=== PATIENT | male | born 2000 | race Hispanic/Latino ===

== ENCOUNTER 2020-04-27 05:28 | Emergency (ER) | payer SELFPAY ==
[~2020-04-27] VITALS: Ht 180.3 cm; Wt 52.2 kg
--- NOTE | 2020-04-27 05:37 | Emergency Department Note ---
History of Present Illnes History of Present Illness Chief Complaint: Genitourinary History of Present Illness This is a 19 year old male presents to the ED for asymptomatic hemat uria since this AM. Denies trauma or pain to the area. . Onset (how long ago): second(s) Radiation: Reports non-radiation Severity: mild Onset quality: sudden Timing of current episode: constant Progression: unchanged Chronicity: new Relieving factors: none Exacerbating factors: none Associated symptoms: Denies denies other symptoms, Denies confusion, Denies chest pain, Denies cough, Denies diaphoresis, Denies fever/chills, Denies headaches, Denies loss of appetite, Denies malaise, Denies nausea/vomiting, Denies rash, Denies seizure, Denies shortness of breath, Denies syncope, Denies weakness, Denies other (RODNEY STEPHENS DO) Past Medical/Family History Physician Review I have reviewed the patient's past medical and family history. Any updates have been documented here. (RODNEY STEPHENS DO) Past Medical History Recent Fever: No Clinical Suspicion of Infectio: No New/Unexplained Change in Ment: No Past Medical History: None Past Surgical History: None (RODNEY STEPHENS DO) Social History Smoking Cessation: Current some day smoker Alcohol Use: None Any Illegal Drug Use: No (RODNEY STEPHENS DO) Review of Systems Review of Systems Constitutional: Reports no symptoms EENTM: Reports no symptoms Cardiovascular: Reports no symptoms Respiratory: Reports no symptoms Gastrointestinal: Reports no symptoms Genitourinary: Reports hematuria Musculoskeletal: Reports no symptoms Integumentary: Reports no symptoms Neurological: Reports no symptoms Psychological: Reports no symptoms Endocrine: Reports no symptoms Hematological/Lymphatic: Reports no symptoms (RODNEY STEPHENS DO) Physical Exam Related Data Allergies: Coded Allergies: No Known Allergies (Unverified , 01/10/17) Physical Exam CONSTITUTIONAL Constitutional: Present well-developed, Present well-nourished HENT HENT: Present normocephalic, Present atraumatic, Present oropharynx clear/moist, Present nose normal HENT L/R: Present left ext ear normal, Present right ext ear normal EYES Eyes: Reports PERRL, Reports conjunctivae normal NECK Neck: Present ROM normal PULMONARY Pulmonary: Present effort normal, Present breath sounds normal CARDIOVASCULAR Cardiovascular: Present regular rhythm, Present heart sounds normal, Present capillary refill normal, Present normal rate GASTROINTESTINAL Abdominal: Present soft, Present nontender, Present bowel sounds normal GENITOURINARY Genitourinary: Present exam deferred SKIN Skin: Present warm, Present dry MUSCULOSKELETAL Musculoskeletal: Present ROM normal NEUROLOGICAL Neurological: Present alert, Present oriented x 3, Present no gross motor or sensory deficits PSYCHOLOGICAL Psychological: Present mood/affect normal, Present judgement normal (RODNEY STEPHENS DO) Results Laboratory Laboratory Laboratory Tests Test 04/27/20 05:32 Urine Color Yellow (YELLOW) Urine Clarity Sl cloudy (CLEAR) Urine pH 5.5 (5 - 7) Urine Specific [place] >=1.030 (1.010-1.025) Urine Protein Trace (NEGATIVE) Urine Glucose (UA) Negative (NEGATIVE) Urine Ketones Negative (NEGATIVE) Urine Blood Large (NEGATIVE) Urine Nitrite Negative (NEGATIVE) Urine Bilirubin Negative (NEGATIVE) Urine Urobilinogen 0.2 mg/dL (0.2 - 1) Urine Leukocyte Esterase Trace (NEGATIVE) Urine RBC 11-20 /HPF (0-5) Urine WBC >50 /HPF (0-5) Urine Epithelial Cells Few /LPF (NONE) Urine Bacteria Rare /HPF (NONE) Lab results reviewed: Yes (DINO ECHEVERRIA MD) Imaging Imaging results reviewed: Yes (DINO ECHEVERRIA MD) Assessment & Plan Medical Decision Making MDM Diff Dx : cystitis, hematuria, UTI, bladder malignancy, kidney stone (RODNEY STEPHENS DO) Reassessment Reassessment treat with IM Rocephin, po Azithro here, DC home with Cipro 500 bid x 10 days, F/U Urology within 1 week (DINO ECHEVERRIA MD) Assessment & Plan Final Impression: (1) Hematuria (RODNEY STEPHENS DO) Final Impression: (1) Hematuria (2) UTI (urinary tract infection) (DINO ECHEVERRIA MD) Depart Disposition: HOME, SELF-CARE RODNEY STEPHENS DO Apr 27, 2020 05:37 DINO ECHEVERRIA MD Apr 27, 2020 06:52
[2020-04-27 05:57] LABS: CLARITY,URINE SL CLOUDY (CLEAR); COLOR,URINE YELLOW (YELLOW); LEUKOCYTE ESTERASE ,URINE TRACE (NEGATIVE)
[2020-04-27 05:58] LABS: BILIRUBIN,URINE NEGATIVE (NEGATIVE); KETONES,URINE NEGATIVE (NEGATIVE); NITRITE,URINE NEGATIVE (NEGATIVE); PROTEIN,URINE DIPSTICK TRACE (NEGATIVE); URINE UROBILINOGEN 0.2 mg/dL (0.2 - 1)
--- NOTE | 2020-04-27 06:19 | Diagnostic Imaging Report ---
EXAM: CT Abdomen and Pelvis WITHOUT contrast INDICATION: ^hematuria COMPARISON: None. TECHNIQUE: Abdomen and pelvis were scanned utilizing a multidetector helical scanner from the lung base to the pubic symphysis without administration of IV contrast. Absence of intravenous contrast decreases sensitivity for detection of focal lesions and vascular pathology. Coronal and sagittal reformations were obtained. Routine protocol was performed. IV CONTRAST: None ORAL CONTRAST: Water COMPLICATIONS: None RADIATION DOSE: Total DLP: 165.55 mGy*cm Estimated effective dose: (DLP x 0.015 x size factor) mSv CTDIvol has been reviewed. It is below the limits set by the Radiation Protocol Committee (RPC). FINDINGS: LINES and TUBES: None. LOWER THORAX: Unremarkable HEPATOBILIARY: Unenhanced liver is unremarkable. No biliary ductal dilation. GALLBLADDER: No radio-opaque stones or sludge. No wall thickening. SPLEEN: No splenomegaly. PANCREAS: No focal masses or ductal dilatation. ADRENALS: No adrenal nodules KIDNEYS/URETERS: No hydronephrosis. Limited for evaluation of renal parenchyma without intravenous contrast. 2 cm left renal superior pole hypodensity, likely a cyst. No stones. GI TRACT: No abnormal distention, wall thickening, or evidence of bowel obstruction. Appendix is not clearly visualized. PELVIC ORGANS/BLADDER: Unremarkable. LYMPH NODES: No lymphadenopathy. VESSELS: Unremarkable. PERITONEUM / RETROPERITONEUM: No free air or fluid. BONES: Unremarkable. SOFT TISSUES: Unremarkable. IMPRESSION: 1. No nephrolithiasis or evidence of obstructive urolithiasis. 2. Left renal superior pole 2 cm hypodensity, likely a cyst, which can be further evaluated with nonurgent renal ultrasound. Signed by: Dr. Ramón Espino MD on 04/27/2020 6:16 AM
[2020-04-27 06:23] LABS: WBC,URINE (MAN) >50 /HPF (0-5)
[2020-04-27 06:24] LABS: BACTERIA,URINE RARE /HPF; EPITHELIAL CELLS,URINE FEW /LPF
[2020-04-27] MEDS ORDERED: AZITHROMYCIN 250 MG TAB PO STA (06:34)
[2020-04-27] MEDS ORDERED: CEFTRIAXONE SOD 1 GM VIAL IM ONE (06:45)
[2020-04-27] MEDS ORDERED: CEFTRIAXONE SOD 1 GM VIAL ONE (06:50)
[2020-04-27] MEDS ORDERED: LIDOCAINE HCL 1% 2 ML AMP ONE (06:50)
[2020-04-27] MEDS ORDERED: AZITHROMYCIN 250 MG TAB ONE (06:50)
[2020-04-27 07:52] VITALS: BP 107/66
== END 2020-04-27 08:00 | disposition home or self-care (01) ==
LOC: ER 05:32
DX: N39.0 Urinary tract infection, site not specified (principal); R31.9 Hematuria, unspecified; F17.210 Nicotine dependence, cigarettes, uncomplicated
CPT/HCPCS: 74176; 81001; 87086; 99284; J0696; J2001

== ENCOUNTER 2022-04-28 19:01 | Emergency (ER) | payer SELFPAY ==
[~2022-04-28] VITALS: Ht 180.3 cm; Wt 52.2 kg
[2022-04-28 19:36] LABS: CLARITY,URINE SL CLOUDY (CLEAR); COLOR,URINE STRAW (YELLOW); KETONES,URINE TRACE (NEGATIVE); LEUKOCYTE ESTERASE ,URINE NEGATIVE (NEGATIVE); NITRITE,URINE NEGATIVE (NEGATIVE); PROTEIN,URINE DIPSTICK 1+ (NEGATIVE); URINE UROBILINOGEN 0.2 mg/dL (0.2 - 1)
[2022-04-28 19:51] LABS: BACTERIA,URINE FEW /HPF
[2022-05-01] MEDS ORDERED: DOXYCYCLINE HY100 MG PO (12:52)
== END 2022-04-28 22:00 | disposition home or self-care (01) ==
LOC: ER 19:25
DX: R31.9 Hematuria, unspecified (principal); N28.9 Disorder of kidney and ureter, unspecified
CPT/HCPCS: 74176; 81001; 87491; 87591